=== PATIENT | female | born 1935 | race Caucasian/White ===

== ENCOUNTER 2017-03-05 16:57 | Emergency (ER) | payer BC ==
[~2017-03-05] VITALS: Ht 152.4 cm; Wt 78.9 kg
[2017-03-05 18:03] LABS: EOSINOPHIL (%) 5.8 % (0-5); EOSINOPHIL COUNT 0.3 K/uL (0-0.3); HEMATOCRIT 42.8 % (36.0-46.0); IMMATURE GRANULOCYTE (%) 0.4 % (0.0-0.7); INSTRUMENT ABS NEUTROPHIL CT 2.7 K/uL; LYMPHOCYTE COUNT 1.6 K/uL (1.0-2.8); MCH 29.9 PG (29.0-34.0); MCHC 33.6 G/DL (30.0-36.0); MCV 88.8 FL (83-99); MONOCYTE (%) 10.6 % (3-12); MONOCYTE COUNT 0.6 K/uL (0-0.8); NEUTROPHIL (%) 52.4 % (45-76); NEUTROPHIL COUNT 2.7 K/uL (1.8-6.4); PLATELET COUNT 275 K/uL (156-360); RBC DIS.WIDTH-CV 13.2 % (11.8-14.6); RBC DIS.WIDTH-SD 43.1 % (39-53); RED BLOOD COUNT 4.82 M/uL (3.80-5.20); WHITE BLOOD COUNT 5.2 K/uL (4.1-10.2)
[2017-03-05 18:17] LABS: CHLORIDE 98 mEq/L (99-109); POTASSIUM 3.4 mEq/L (3.7-5.4); SODIUM 137 mEq/L (136-147)
[2017-03-05 18:19] LABS: GLUCOSE 112 mg/dL (70-99)
[2017-03-05 18:20] LABS: ANION GAP 10 MEQ/L (2-14)
[2017-03-05 18:21] LABS: TOTAL BILIRUBIN 0.8 mg/dL (0.0-1.0)
[2017-03-05 18:22] LABS: ALKALINE PHOSPHATASE 43 IU/L (3-129)
[2017-03-05 18:23] LABS: GFR ESTIMATE (CALCULATED) > 59 mL/min/
[2017-03-05 18:24] LABS: UREA NITROGEN (BUN) 15 mg/dL (9-23)
[2017-03-05 18:32] LABS: TROP-I INTERPRETATION NEGATIVE; TROPONIN-I < 0.01 ng/mL (0.0-0.30)
[2017-03-05 23:15] VITALS: BP 142/84
== END 2017-03-05 23:17 | disposition home or self-care (01) ==
LOC: EME 16:57 → EDBD 16:57 → EME 16:57
PROVIDERS: Emergency Medicine
DX: I10 Essential (primary) hypertension (principal); R51 Headache; I25.2 Old myocardial infarction; E03.9 Hypothyroidism, unspecified; Z95.5 Presence of coronary angioplasty implant and graft; Z95.1 Presence of aortocoronary bypass graft; Z88.2 Allergy status to sulfonamides
CPT/HCPCS: 70496; 70498; 80053; 84484; 85025; 93005; 99281; 99285; J0360